=== PATIENT | male | born 1940 | race Caucasian/White ===

== ENCOUNTER 2020-08-01 07:38 | Inpatient (IN) ==
[2020-08-01 08:36] LABS: Basophils % 0.6 %; Eosinophils # 0.2 K/mcL (0.0-0.6); Eosinophils % 3.2 %; Hematocrit 26.1 % (37.5-50.1); Hemoglobin 8.2 g/dL (12.9-16.9); Immature Granulocytes % 0.6 % (0-4); Lymphocytes # 1.1 K/mcL (0.6-4.6); Lymphocytes % 16.4 %; Mean Corpuscular HGB Conc 31.4 g/dL (31.6-35.5); Mean Corpuscular Hemoglobin 30.3 pg (28.0-33.3); Mean Corpuscular Volume 96.3 fL (83.0-100.0); Mean Platelet Volume 10.4 fL (9.4-12.4); Monocytes # 0.6 K/mcL (0.0-1.3); Monocytes % 8.9 %; Neutrophils # 4.8 K/mcL (1.6-8.9); Platelet Count 179 K/mcL (140-400); Red Blood Count 2.71 M/mcL (4.19-5.50); Red Cell Distribution Width 14.5 % (11.5-14.5); Segmented Neutrophils % 70.3 %; White Blood Count 6.9 K/mcL (4.3-11.1)
[2020-08-01 08:49] LABS: INR 1.1; Prothrombin Time 12.4 Seconds (9.4-12.1)
[2020-08-01 08:55] LABS: Alanine Aminotransferase 29 Units/L (7-52); Albumin 3.5 g/dL (3.5-5.7); Albumin/Globulin Ratio 1.4 (1.1-2.2); Alkaline Phosphatase 112 Units/L (34-104); Aspartate Amino Transferase 25 Units/L (13-39); BUN/Creatinine Ratio 20 (6-26); Bilirubin,Direct 0.1 mg/dL (0.0-0.2); Bilirubin,Indirect 0.3 mg/dL (0.0-1.0); Bilirubin,Total 0.4 mg/dL (0.3-1.0); Blood Urea Nitrogen 22 mg/dL (8-23); Calcium 8.4 mg/dL (8.6-10.3); Carbon Dioxide 26 mEq/L (23-29); Chloride 107 mEq/L (98-107); Globulin 2.5 g/dL (2.4-3.5); Glucose 112 mg/dL (70-105); Osmolality,Calculated 292 (280-300); Potassium 3.6 mEq/L (3.5-5.1); Sodium 139 mEq/L (136-145); Troponin I < 0.03 ng/mL (< 0.04); eGFR For African Americans > 60 (> 60); eGFR For Non-African Americans > 60 (> 60)
[2020-08-01 09:04] LABS: Amphetamine Screen,Urine Negative ng/mL (Cutoff=1000); Barbiturate Screen,Urine Negative ng/mL (Cutoff=200); Benzodiazepines Screen,Urine Negative ng/mL (Cutoff=200); Cannabinoid Screen,Urine Negative ng/mL (Cutoff = 50); Cocaine Screen,Urine Negative ng/mL (Cutoff= 300); Opiate Screen,Urine Negative ng/mL (Cutoff=300); Phencyclidine Screen,Urine Negative ng/mL (Cutoff=25)
[2020-08-01 09:08] LABS: Bacteria,Urine Few per hpf (None-Few); Bilirubin,Urine Negative (Negative); Blood,Urine Negative (Negative); Clarity,Urine Clear (Clear); Color,Urine Light-Yellow (Yellow); Glucose,Urine (UA) Normal (Normal); Ketones,Urine Negative (Negative); Leukocyte Esterase,Urine Large (Negative); Mucus,Urine Few per lpf (None-Few); Nitrite,Urine Positive (Negative); Protein,Urine Negative (Neg-Trace); Specific Gravity,Urine 1.014 (1.010-1.025); Urobilinogen,Urine Normal (Normal); WBC,Urine 50-100 per hpf (0-3)
[2020-08-01 09:08] LABS: Thyroid Stimulating Hormone 1.022 mcIU/mL (0.340-5.600)
[2020-08-01] MEDS ORDERED: cefTRIAXone 1,000 MG in Water for inj. (sterile) 10 ML IVP ONE (09:44)
[2020-08-01] MEDS ORDERED: Ondansetron 4 MG/2 ML VIAL IVP PRN (10:19)
[2020-08-01] MEDS ORDERED: Naloxone 0.4 MG/ML INJ IVP PRN (10:19)
[2020-08-01] MEDS ORDERED: Acetaminophen 325 MG TABLET PO PRN (10:19)
[2020-08-01] MEDS ORDERED: DilTIAZem 50 MG/50 ML IV.SOLN IVC SCH (11:15)
[2020-08-01 12:43] LABS: Hematocrit 25.4 % (37.5-50.1)
[2020-08-01] MEDS ORDERED: risperiDONE 0.25 MG TABLET PO SCH (17:05)
[2020-08-01 18:23] LABS: Hematocrit 23.9 % (37.5-50.1); Hemoglobin 7.6 g/dL (12.9-16.9)
[2020-08-01] MEDS: Melatonin 3 MG TABLET PO SCH (19:57)
[2020-08-01] MEDS: traZODone 50 MG TABLET PO SCH (19:57)
[2020-08-01] MEDS: Mirtazapine 15 MG TABLET PO SCH (19:58)
[2020-08-02 00:37] LABS: Basophils % 0.4 %; Eosinophils # 0.3 K/mcL (0.0-0.6); Eosinophils % 3.4 %; Hemoglobin 7.5 g/dL (12.9-16.9); Immature Granulocytes % 0.3 % (0-4); Lymphocytes % 26.3 %; Mean Corpuscular HGB Conc 31.3 g/dL (31.6-35.5); Mean Corpuscular Hemoglobin 29.5 pg (28.0-33.3); Mean Corpuscular Volume 94.5 fL (83.0-100.0); Mean Platelet Volume 10.2 fL (9.4-12.4); Monocytes # 0.7 K/mcL (0.0-1.3); Monocytes % 9.3 %; Neutrophils # 4.5 K/mcL (1.6-8.9); Platelet Count 179 K/mcL (140-400); Red Blood Count 2.54 M/mcL (4.19-5.50); Red Cell Distribution Width 14.7 % (11.5-14.5); Segmented Neutrophils % 60.3 %; White Blood Count 7.5 K/mcL (4.3-11.1)
[2020-08-02 00:56] LABS: BUN/Creatinine Ratio 24 (6-26); Blood Urea Nitrogen 24 mg/dL (8-23); Calcium 8.2 mg/dL (8.6-10.3); Carbon Dioxide 26 mEq/L (23-29); Chloride 107 mEq/L (98-107); Glucose 100 mg/dL (70-105); Osmolality,Calculated 294 (280-300); Potassium 3.7 mEq/L (3.5-5.1); Sodium 140 mEq/L (136-145); eGFR For African Americans > 60 (> 60); eGFR For Non-African Americans > 60 (> 60)
[2020-08-02 07:15] LABS: Hematocrit 23.3 % (37.5-50.1); Hemoglobin 7.3 g/dL (12.9-16.9)
[2020-08-02] MEDS: risperiDONE 0.25 MG TABLET PO SCH ×2 (08:50→08:51)
[2020-08-02] MEDS: Loratadine 10 MG TABLET PO SCH (08:51)
[2020-08-02] MEDS ORDERED: cefTRIAXone 1,000 MG in Water for inj. (sterile) 10 ML IVP ONE (09:32)
[2020-08-02 14:56] LABS: % Iron Saturation 8 % (20-55); Iron 27 mcg/dL (65-175); Transferrin 235 mg/dL (203-362)
[2020-08-02 15:15] LABS: Ferritin 53 ng/mL (20-250)
[2020-08-02 15:20] LABS: Folate 21.4 ng/mL (3.0-16.0)
[2020-08-02] MEDS: traZODone 50 MG TABLET PO SCH (23:04)
[2020-08-02] MEDS: Mirtazapine 15 MG TABLET PO SCH (23:05)
[2020-08-02] MEDS: Melatonin 3 MG TABLET PO SCH (23:05)
[2020-08-03 09:32] LABS: Hematocrit 24.8 % (37.5-50.1); Hemoglobin 7.7 g/dL (12.9-16.9); Mean Corpuscular Hemoglobin 30.3 pg (28.0-33.3); Mean Corpuscular Volume 97.6 fL (83.0-100.0); Mean Platelet Volume 10.4 fL (9.4-12.4); Platelet Count 201 K/mcL (140-400); Red Blood Count 2.54 M/mcL (4.19-5.50); Red Cell Distribution Width 15.2 % (11.5-14.5); White Blood Count 6.5 K/mcL (4.3-11.1)
[2020-08-03] MEDS: Loratadine 10 MG TABLET PO SCH (09:41)
[2020-08-03] MEDS: risperiDONE 0.25 MG TABLET PO SCH ×2 (09:41)
[2020-08-03 09:47] LABS: BUN/Creatinine Ratio 16 (6-26); Blood Urea Nitrogen 17 mg/dL (8-23); Calcium 8.4 mg/dL (8.6-10.3); Carbon Dioxide 24 mEq/L (23-29); Chloride 107 mEq/L (98-107); Glucose 119 mg/dL (70-105); Osmolality,Calculated 289 (280-300); Potassium 3.8 mEq/L (3.5-5.1); Sodium 138 mEq/L (136-145); eGFR For African Americans > 60 (> 60); eGFR For Non-African Americans > 60 (> 60)
[2020-08-03] MEDS ORDERED: Vancomycin 1,250 MG/262.5 ML IV.SOLN IVPB ONE (10:00)
[2020-08-03] MEDS: traZODone 50 MG TABLET PO SCH (20:09)
[2020-08-03] MEDS: Melatonin 3 MG TABLET PO SCH (20:09)
[2020-08-03] MEDS: Mirtazapine 15 MG TABLET PO SCH (20:09)
[2020-08-03] MEDS ORDERED: Vancomycin 1,250 MG/262.5 ML IV.SOLN IVPB SCH (22:00)
[2020-08-04 01:59] LABS: Hematocrit 25.5 % (37.5-50.1); Mean Corpuscular HGB Conc 31.4 g/dL (31.6-35.5); Mean Corpuscular Hemoglobin 29.5 pg (28.0-33.3); Mean Corpuscular Volume 94.1 fL (83.0-100.0); Platelet Count 214 K/mcL (140-400); Red Blood Count 2.71 M/mcL (4.19-5.50); Red Cell Distribution Width 15.2 % (11.5-14.5); White Blood Count 6.8 K/mcL (4.3-11.1)
[2020-08-04 02:26] LABS: BUN/Creatinine Ratio 12 (6-26); Blood Urea Nitrogen 12 mg/dL (8-23); Calcium 8.2 mg/dL (8.6-10.3); Carbon Dioxide 23 mEq/L (23-29); Chloride 110 mEq/L (98-107); Glucose 100 mg/dL (70-105); Osmolality,Calculated 290 (280-300); Potassium 3.4 mEq/L (3.5-5.1); Sodium 140 mEq/L (136-145); eGFR For African Americans > 60 (> 60); eGFR For Non-African Americans > 60 (> 60)
[2020-08-04] MEDS: risperiDONE 0.25 MG TABLET PO SCH ×2 (10:24→10:25)
[2020-08-04] MEDS: Loratadine 10 MG TABLET PO SCH (10:24)
[2020-08-04] MEDS ORDERED: Lidocaine -MPF 2% 2 ML VIAL ONE (11:23)
[2020-08-04 23:38] VITALS: BP 101/68
[2020-08-05] MEDS ORDERED: Sulfamethoxazole/Trimeth DS 1 EACH TABLET PO SCH (09:00)
== END 2020-08-04 18:54 | DRG 378 ==
LOC: CDU 07:38 → EMEROOARM 07:38 → SUATTDRO 10:32 → CDU 11:12 → 3ANU 15:49
PROVIDERS: ADMIT Pharmacist; ATTEND Family Medicine